=== PATIENT | male | born 1960 | race Caucasian/White ===

== ENCOUNTER 2016-11-29 21:02 | Emergency (ER) | payer OTHER ==
[~2016-11-29] VITALS: Ht 170.2 cm; Wt 69.9 kg
[~2016-11-29 21:02] MED LIST: ACET325T33 PO; DOCU-144 PO; ELVI1TAB PO; FAMO20TA18 PO; Furosemide IV; HYDR-3498 PO; IPRA3AMP HHN; LISI10TA2 PO; MOR2I IV; ONDA4VIA2 IV; ZOLP5TAB PO
[2016-11-29 21:11] VITALS: Ht 170.2 cm; Wt 69.9 kg
[2016-11-29] MEDS ORDERED: ONDANSETRON 4 MG INJ IV STA (22:41)
[2016-11-29] MEDS ORDERED: morphine 4 MG/ML VIAL IV STA (22:41)
[2016-11-29] MEDS ORDERED: SOD CHLORIDE 0.9% 500 ML IV STA (22:41)
[2016-11-29 23:15] LABS: ADD SCAN DIFF NO
[2016-11-29 23:18] LABS: BASOPHILS % 0.6 % (0.0-2.0); EOSINOPHILS # 0.3 10^3/ul (0.0-0.5); EOSINOPHILS % 4.3 % (0.0-7.0); HEMATOCRIT 29.8 % (42.0-52.0); HEMOGLOBIN 10.3 g/dl (14.0-18.0); LYMPHOCYTES % 16.4 % (15.0-51.0); MEAN CORPUSCULAR HEMOGLOBIN 32.2 pg (29.0-33.0); MEAN CORPUSCULAR HGB CONC 34.6 g/dl (32.0-37.0); MEAN CORPUSCULAR VOLUME 93.1 fl (82.0-101.0); MEAN PLATELET VOLUME 8.9 fl (7.4-10.4); MONOCYTE # 0.8 10^3/ul (0.3-0.9); MONOCYTES % 12.7 % (0.0-11.0); NEUTROPHIL # 4.1 10^3/ul (1.6-7.5); NEUTROPHILS % 65.8 % (39.0-77.0); PLATELET COUNT 140 10^3/UL (140-415); RED CELL DISTRIBUTION WIDTH 13.2 % (11.5-14.5); WHITE BLOOD COUNT 6.2 10^3/ul (4.8-10.8)
[2016-11-29 23:27] LABS: ALBUMIN 2.6 g/dl (3.3-4.9)
[2016-11-29 23:28] LABS: POTASSIUM 3.9 mmol/L (3.5-5.1)
[2016-11-29 23:30] LABS: ALBUMIN/GLOBULIN RATIO 0.65; BILIRUBIN,INDIRECT 0.4 mg/dl (0-1.1); BILIRUBIN,TOTAL 0.4 mg/dl (0.2-1.3); CREATININE 0.6 mg/dl (0.61-1.24); TOTAL PROTEIN 6.6 g/dl (6.1-8.1)
[2016-11-29 23:31] LABS: CALCIUM 8.3 mg/dl (8.4-10.2)
--- NOTE | 2016-11-29 23:52 | RADRPT ---
PROCEDURE: CT Abdomen and pelvis without contrast. CLINICAL INDICATION: Abdominal pain. TECHNIQUE: CT scan of the abdomen and pelvis was performed on a multi-detector high-resolution CT scanner. Contiguous axial images were obtained from the lung bases to the ischial tuberosities wit hout intravenous contrast. Coronal and sagittal reformatted images were also obtained. Images were reviewed on the PACS workstation. One or more of the following dose reduction techniques were used: - Automated exposure control. - Adjustment of the mA and/or kV according to patient size. - Use of iterative reconstruction technique. Exam CTD/vol = 9.48 mGy. Total exam DLP = 518.14 mGy-cm. COMPARISON: 10/27/2015. FINDINGS: Evaluation of the lung bases demonstrates a moderate right-sided pleural effusion with underlying at electasis. Abdomen: The liver is normal in size with a diffuse nodular contour consistent with cirrhosis. The re is no focal mass or dilatation of the biliary tree. A TIPS is present. The gallbladder is not d istended. A gallstone is identified. The spleen, pancreas and bilateral adrenal glands are within normal limits. Bilateral kidneys are normal in size with no contour deforming mass identified. The re is a punctate 1 mm calculus within the lower pole of the right kidney. There is a right-sided ur eteral stent in place. There is mild right-sided hydronephrosis with mild perinephric and periurete ral stranding. There is no retroperitoneal adenopathy. The abdominal aorta is of normal caliber. There is no abnormal bowel wall thickening or distension. There is no bowel obstruction or free air . A normal appendix is identified. There diverticulosis of the descending and sigmoid colon withou t evidence of diverticulitis. There is no ascites. Pelvis: The bladder is unremarkable. There is a 6 x 3 mm calculus within the right distal ureter. The prostate and seminal vesicles are within normal limits. There is no significant pelvic adenopat hy or free fluid. Evaluation of the osseous structures demonstrates no suspicious lytic or blastic lesion. There are d egenerative changes and moderate dextroscoliosis of the lumbar spine. IMPRESSION: Right distal ureteral 6 x 3 mm calculus with mild right-sided hydronephrosis. There is a right-side d ureteral stent in place. Moderate right-sided pleural effusion with underlying atelectasis. Cirrhotic liver with TIPS present. Cholelithiasis. Right renal calculus. Descending and sigmoid diverticulosis without evidence of diverticulitis. Degenerative changes and moderate dextroscoliosis of the lumbar spine. .Larry Corrales MD, MD Date Time Electronically viewed and signed by .Larry Corrales MD, on 11/29/2016 23:52 .T/
[2016-11-29 23:58] LABS: ADD UMIC YES; URINE BILIRUBIN (Dip) NEGATIVE (NEGATIVE); URINE BLOOD (Dip) 3+ (NEGATIVE); URINE GLUCOSE (Dip) NEGATIVE (NEGATIVE); URINE KETONES (Dip) NEGATIVE (NEGATIVE); URINE LEUKOCYTE ESTERASE (Dip) 1+ (NEGATIVE); URINE NITRITE (Dip) NEGATIVE (NEGATIVE); URINE TOTAL PROTEIN (Dip) 4+ (NEGATIVE); URINE UROBILINOGEN (Dip) 0.2 E.U./dL (0.1-1.0)
[2016-11-30 00:03] LABS: URINE COLOR RED (YELLOW)
[2016-11-30 00:04] LABS: BACTERIA,URINE FEW; SQUAMOUS EPITHELIAL CELL,UR OCCASIONAL; URINE RBCS >200 /HPF (0)
[2016-11-30 00:05] LABS: MUCUS,URINE MANY
[2016-11-30] MEDS ORDERED: TAMS-14 PO (01:41)
[2016-11-30] MEDS ORDERED: DOCU-144 PO (01:41)
[2016-11-30] MEDS ORDERED: IBUP-1542 PO (01:41)
[2016-11-30] MEDS ORDERED: HYDR-906 PO (01:41)
--- NOTE | 2016-11-30 02:08 | ERD ---
ER Documentation Chief Complaint Date/Time DATE: 11/30/16 TIME: 02:01 Chief Complaint R flank pain x 3 month after having kidney stones removed. HPI Patient is a 56-year-old male with a past medical history of hepatitis C, HIV, known kidney stones who presents to the emergency department with right-sided flank pain. Patient states his pain started approximately 3 months ago. Patient describes pain to be intermittent in nature. Patient states that " there is a broken piece of catheter stuck in my kidney" and thus he is here to have it removed. Patient states he was referred here by his caustic purification operator at [facility]. Patient does not recall the name of his caustic purification operator. Patient states that he started having hematuria 2 weeks ago. Patient also reports frequency. Patient denies any fevers, chills, nausea, vomiting, upper abdominal pain, chest pain, shortness of breath, diaphoresis, loss of consciousness. Patient denies any changes in his bowel movements. ROS All systems reviewed and are negative except as per history of present illness. Medications Home Meds Active Scripts Ciprofloxacin Hcl* (Ciprofloxacin Hcl*) 500 Mg Tablet, 500 MG PO BID for 7 Days , TAB Prov:GEORGE TURNER PA-C 11/30/16 Docusate Sodium* (Colace*) 100 Mg Capsule, 100 MG PO DAILY, #30 CAP Prov:GEORGE TURNER PA-C 11/30/16 Tamsulosin Hcl* (Flomax*) 0.4 Mg Cap.er.24h, 0.4 MG PO BID, #30 CAP Prov:GEORGE TURNER PA-C 11/30/16 Ibuprofen* (Motrin*) 600 Mg Tab, 600 MG PO Q6, #30 TAB Prov:GEORGE TURNER PA-C 11/30/16 Hydrocodone/Acetaminophen ([place] 5-325 Tablet) 1 Each Tablet, 1 TAB PO Q6H Y for PAIN, #10 TAB Prov:GEORGE TURNER PA-C 11/30/16 Zolpidem Tartrate (Ambien Gopi) 5 Mg Tablet, 5 MG PO QHS Y for SLEEP for 1 Day, TAB Prov:CAMI WELLER 08/18/16 Ondansetron Hcl* (Ondansetron Hcl* Inj) 4 Mg/2 Ml Vial, 4 MG IV Q6H Y for NAUSEA AND/OR VOMITING for 1 Day, VIAL Prov:CAMI WELLERAnthony 08/18/16 Morphine Sulfate (Morphine Sulfate) 2 Mg/Ml Soln, 2 MG IV Q4H Y for SEVERE PAIN LEVEL 7-10 for 1 Day Prov:CAMI WELLERAnthony 08/18/16 Ipratropium-Albuterol (Ipratropium-Albuterol) 0.5-3 Mg/3 Ml Ampul.neb, 3 ML HHN Q4H RESP THERAPY for 1 Day Prov:CAMI WELLERAnthony 08/18/16 Hydrocodone Bit-Acetaminophen (Hydrocodone Bit-APAP) 5-325MG Tablet, 1 TAB PO Q6H Y for MODERATE PAIN LEVEL 4-6 for 1 Day, TAB Prov:CAMI WELLER Anthony 08/18/16 [Furosemide] 10 MG/ML SOLN No Conflict Check, 40 MG IV DAILY for 1 Day Prov:CAMI WELLER Anthony 08/18/16 Famotidine* (Famotidine*) 20 Mg Tablet, 20 MG PO BID for 1 Day, TAB Prov:CAMI WELLER Anthony 08/18/16 Docusate Sodium* (Colace*) 100 Mg Capsule, 100 MG PO Q12H Y for CONSTIPATION for 1 Day, CAP Prov:CAMI WELLER Anthony 08/18/16 Acetaminophen* (Tylenol*) 325 Mg Tablet, 650 MG PO Q6H Y for PAIN LEVEL 1-3 OR FEVER for 1 Day, TAB Prov:CAMI WELLER Anthony 08/18/16 Reported Medications Elvitegr/Cobicist/Emtric/Tenof (STRIBILD TABLET) 1 Each Tablet, 1 EACH PO DAILY , TAB 08/02/16 Lisinopril* (Lisinopril*) 10 Mg Tablet, 10 MG PO DAILY, #30 TAB 08/02/16 Allergies Allergies: Coded Allergies: Penicillins (Verified Allergy, Mild, HIVES, 08/02/16) PMhx/Soc History of Surgery: Yes (hernia repair 2016) Anesthesia Reaction: No Hx Neurological Disorder: No Hx Respiratory Disorders: Yes (respiratory failure) Hx Cardiac Disorders: Yes (htn) Hx Psychiatric Problems: No Hx Miscellaneous Medical Probl: Yes (hiv, hep c) Hx Alcohol Use: Yes Hx Substance Use: No Hx Tobacco Use: Yes Smoking Status: Former smoker FmHx Family History: No diabetes Physical Exam Vitals Vital Signs Date Time Temp Pulse Resp B/P Pulse Ox O2 Delivery O2 Flow Rate FiO2 11/30/16 02:09 76 16 131/72 98 Room Air 11/29/16 21:11 98.6 95 20 131/61 100 Physical Exam GENERAL: Well-developed, well-nourished male. Appears in no acute distress. HEAD: Normocephalic, atraumatic. EYES: Pupils are equally reactive bilaterally. EOMs grossly intact. No conjunctival erythema. No conjunctival icterus ENT: Moist mucous membranes. No uvula deviation. No kissing tonsils. NECK: Supple. No meningismus. Normal range of motion of the neck. LUNG: Clear to auscultation bilaterally. No rhonchi, wheezing, rales or coarse breath sounds. HEART: Regular rate and rhythm. No murmurs, rubs or gallops. ABDOMEN: Soft, nontender, and nondistended. Positive bowel sounds in all four quadrants. No rebound tenderness, no guarding. (-) McBurney's point tenderness. R CVA tenderness. No ascites BACK: No midline tenderness. EXTREMITIES: Equal pulses bilaterally. No peripheral clubbing, cyanosis or edema. No unilateral leg swelling. NEUROLOGIC: Alert and oriented. Moving all four extremities without any difficulty. Normal speech. Steady gait. SKIN: Normal color. Warm and dry. No rashes or lesions. Result Diagram: 11/29/16224911/29/162249 Results 24 hrs Laboratory Tests Test 11/29/16 22:50 11/29/16 23:20 Alanine Aminotransferase (ALT/SGPT) 29IU/L Albumin 2.6g/dl Albumin/Globulin Ratio 0.65 Alkaline Phosphatase 169IU/L Anion Gap 15 Aspartate Amino Transf (AST/SGOT) 52IU/L Basophils # 0.010^3/ul Basophils % 0.6% Blood Urea Nitrogen 15mg/dl Calcium Level 8.3mg/dl Carbon Dioxide Level 22mmol/L Chloride Level 106mmol/L Creatinine 0.60mg/dl Direct Bilirubin 0.00mg/dl Eosinophils # 0.310^3/ul Eosinophils % 4.3% Globulin 4.00g/dl Glucose Level 109mg/dl Hematocrit 29.8% Hemoglobin 10.3g/dl Indirect Bilirubin 0.4mg/dl Lipase 283U/L Lymphocytes # 1.010^3/ul Lymphocytes % 16.4% Mean Corpuscular Hemoglobin 32.2pg Mean Corpuscular Hemoglobin Concent 34.6g/dl Mean Corpuscular Volume 93.1fl Mean Platelet Volume 8.9fl Monocytes # 0.810^3/ul Monocytes % 12.7% Neutrophils # 4.110^3/ul Neutrophils % 65.8% Nucleated Red Blood Cells # 0.010^3/ul Nucleated Red Blood Cells % 0.0/100WBC Platelet Count 65749^3/UL Potassium Level 3.9mmol/L Red Blood Count 3.2010^6/ul Red Cell Distribution Width 13.2% Sodium Level 139mmol/L Total Bilirubin 0.4mg/dl Total Protein 6.6g/dl White Blood Count 6.210^3/ul Urine Bacteria FEW Urine Bilirubin NEGATIVE Urine Clarity CLOUDY Urine Color RED Urine Glucose NEGATIVE% Urine Hemoglobin 3+ Urine Ketones NEGATIVE Urine Leukocyte Esterase 1+ Urine Microscopic RBC >200/HPF Urine Microscopic WBC 2-5/HPF Urine Mucus MANY Urine Nitrite NEGATIVE Urine Specific [place] >=1.030 Urine Squamous Epithelial Cells OCCASIONAL Urine Total Protein 4+ Urine Urobilinogen 0.2 E.U./dL Urine pH 6.0 Current Medications Medications (Trade) Dose Ordered Sig/Lemuel Route PRN Reason Start Time Stop Time Status Last Admin Dose Admin Sodium Chloride (NS) 500 ml @ 500 mls/hr Q1H STAT IV 11/29/16 22:41 11/29/16 23:40 DC 11/29/16 22:59 Morphine Sulfate (morphine) 4 mg ONCE STAT IV 11/29/16 22:41 11/29/16 22:42 DC 11/29/16 22:59 Ondansetron HCl (Zofran Inj) 4 mg ONCE STAT IV 11/29/16 22:41 11/29/16 22:42 DC 11/29/16 22:59 Procedures/MDM ED COURSE: The patient was stable throughout ED course. I kept the patient and/or family informed of laboratory and diagnostic imaging results throughout the ED course. DIAGNOSTIC IMAGING: Read by radiologist. DIAGNOSTIC IMAGING REPORT Patient: ABE BYRNE : 1960 Age: 56 Sex: M MR #: [id number] DOS: 11/29/16 2241 Ordering MD: GEORGE TURNER PA-C Location: [facility] Room/Bed: PROCEDURE: CT Abdomen and pelvis without contrast. CLINICAL INDICATION: Abdominal pain. TECHNIQUE: CT scan of the abdomen and pelvis was performed on a multi- detector high-resolution CT scanner. Contiguous axial images were obtained from the lung bases to the ischial tuberosities without intravenous contrast. Coronal and sagittal reformatted images were also obtained. Images were reviewed on the PACS workstation. One or more of the following dose reduction techniques were used: - Automated exposure control. - Adjustment of the mA and/or kV according to patient size. - Use of iterative reconstruction technique. Exam CTD/vol = 9.48 mGy. Total exam DLP = 518.14 mGy-cm. COMPARISON: 10/27/2015. FINDINGS: Evaluation of the lung bases demonstrates a moderate right-sided pleural effusion with underlying atelectasis. Abdomen: The liver is normal in size with a diffuse nodular contour consistent with cirrhosis. There is no focal mass or dilatation of the biliary tree. A TIPS is present. The gallbladder is not distended. A gallstone is identified. The spleen, pancreas and bilateral adrenal glands are within normal limits. Bilateral kidneys are normal in size with no contour deforming mass identified. There is a punctate 1 mm calculus within the lower pole of the right kidney. There is a right-sided ureteral stent in place. There is mild right-sided hydronephrosis with mild perinephric and periureteral stranding. There is no retroperitoneal adenopathy. The abdominal aorta is of normal caliber. There is no abnormal bowel wall thickening or distension. There is no bowel obstruction or free air. A normal appendix is identified. There diverticulosis of the descending and sigmoid colon without evidence of diverticulitis. There is no ascites. Pelvis: The bladder is unremarkable. There is a 6 x 3 mm calculus within the right distal ureter. The prostate and seminal vesicles are within normal limits. There is no significant pelvic adenopathy or free fluid. Evaluation of the osseous structures demonstrates no suspicious lytic or blastic lesion. There are degenerative changes and moderate dextroscoliosis of the lumbar spine. IMPRESSION: Right distal ureteral 6 x 3 mm calculus with mild right-sided hydronephrosis. There is a right-sided ureteral stent in place. Moderate right-sided pleural effusion with underlying atelectasis. Cirrhotic liver with TIPS present. Cholelithiasis. Right renal calculus. Descending and sigmoid diverticulosis without evidence of diverticulitis. Degenerative changes and moderate dextroscoliosis of the lumbar spine. .Larry Corrales MD, MD Date Time Electronically viewed and signed by .Larry Corrales MD, MD on 11/29/2016 23:52 .T/ MEDICATIONS GIVEN: IV fluids, Zofran, morphine Patient tolerated medication well with no adverse reactions. Patient reported improvement in pain. Patient had safe transport home. MEDICAL DECISION MAKING: This is a 56-year-old male who presents to the emergency department with right- sided flank pain 3 months. Patient does have history of right-sided kidney stones.. Vital signs were reviewed. Patient is afebrile. Patient was not hypoxic. CBC showed no evidence of systemic infection. Patient's hemoglobin level is noted to be 10.3, hematocrit of 29.8. CMP showed no evidence of electrolyte abnormalities, severe acidosis, alkalosis, renal failure, or liver disease. Lipase showed no evidence of acute pancreatitis. Patient's urine showed 2-5 WBCs, positive leukocyte esterase 1+, + squamous epithelial cells. Given the patient's history of kidney stones, I will empirically treat the patient for UTI at this time. CT imaging of the abdomen and pelvis with IV contrast showed a Right distal ureteral 6 x 3 mm calculus with mild right-sided hydronephrosis. There is a right-sided ureteral stent in place. Moderate right-sided pleural effusion with underlying atelectasis. Cirrhotic liver with TIPS present. Cholelithiasis. Right renal calculus. Descending and sigmoid diverticulosis without evidence of diverticulitis. Degenerative changes and moderate dextroscoliosis of the lumbar spine. At this time, patient's presentation is most consistent with nephrolithiasis, pleural effusion, cirrhosis, cholelithiasis, diverticulosis. I have a much lower clinical concern for acute coronary syndrome, AAA, mesenteric ischemia, DKA, bowel perforation, bowel perforation, cholecystitis, choledocholithiasis, ascending cholangitis, hepatic abscess, pancreatitis, splenic rupture, diverticulitis, appendicitis, constipation. PRESCRIPTIONS: [place], ibuprofen, Flomax, Colace, Keflex DISCHARGE: At this time, patient is stable for discharge and outpatient management. I discussed this patient's case with my supervising physician Dr. Zee, who reviewed the patient's CT findings and laboratory studies. At this time, my supervising physician Dr. Zee, agrees that the patient is stable for discharge I have instructed the patient to follow-up with his/her primary care physician in 1-2 days. Patient was advised that he will need to follow-up with his caustic purification operator at [facility] for further management of his symptoms. Patient should also follow-up with his PCP for management of his chronic symptoms including his cirrhosis and pleural effusion. Patient given a copy of all imaging and blood work obtained today. I have instructed the patient to promptly return to the ER at any time for any new or worsening symptoms including increased pain, nausea, vomiting, diarrhea, fever, weakness or LOC. The patient and/or family expressed understanding of and agreement with this plan. All questions were answered. Home care instructions were provided. Departure Diagnosis: Primary Impression: Nephrolithiasis Additional Impressions: Cirrhosis Hepatic cirrhosis type: unspecified hepatic cirrhosis Ascites presence: without ascites Qualified Code: K74.60 - Cirrhosis of liver without ascites, unspecified hepatic cirrhosis type Pleural effusion Diverticulosis Diverticulosis site: unspecified location Diverticulosis bleeding: diverticulosis without bleeding Qualified Code: K57.90 - Diverticulosis of intestine without bleeding, unspecified intestinal tract location Condition: Stable Patient Instructions: Preventing Kidney Stones, Cirrhosis Referrals: [facility] YOU HAVE RECEIVED A MEDICAL SCREENING EXAM AND THE RESULTS INDICATE THAT YOU DO NOT HAVE A CONDITION THAT REQUIRES URGENT TREATMENT IN THE EMERGENCY DEPARTMENT. FURTHER EVALUATION AND TREATMENT OF YOUR CONDITION CAN WAIT UNTIL YOU ARE SEEN IN YOUR DOCTORS OFFICE WITHIN THE NEXT 1-2 DAYS. IT IS YOUR RESPONSIBILITY TO MAKE AN APPOINTMENT FOR FOLOW-UP CARE. IF YOU HAVE A PRIMARY DOCTOR --you should call your primary doctor and schedule an appointment IF YOU DO NOT HAVE A PRIMARY DOCTOR YOU CAN CALL OUR PHYSICIAN REFERRAL HOTLINE AT IF YOU CAN NOT AFFORD TO SEE A PHYSICIAN YOU CAN CHOSE FROM THE FOLLOWING [facility] [address] [facility] [facility] ([place], [place])[phone] [facility]. [facility] [address] [facility] [address] [facility] [facility] [address] [facility]. [facility]. [address] [facility]. [facility] YOU HAVE RECEIVED A MEDICAL SCREENING EXAM AND THE RESULTS INDICATE THAT YOU DO NOT HAVE A CONDITION THAT REQUIRES URGENT TREATMENT IN THE EMERGENCY DEPARTMENT. FURTHER EVALUATION AND TREATMENT OF YOUR CONDITION CAN WAIT UNTIL YOU ARE SEEN IN YOUR DOCTORS OFFICE WITHIN THE NEXT 1-2 DAYS. IT IS YOUR RESPONSIBILITY TO MAKE AN APPOINTMENT FOR FOLOW-UP CARE. IF YOU HAVE A PRIMARY DOCTOR --you should call your primary doctor and schedule and appointment IF YOU DO NOT HAVE A PRIMARY DOCTOR YOU CAN CALL OUR PHYSICIAN REFERRAL HOTLINE AT . IF YOU CAN NOT AFFORD TO SEE A PHYSICIAN YOU CAN CHOSE FROM THE FOLLOWING [facility] INSTITUTIONS: [facility] [address] [place] [address] [facility] [address] [place] [address] [facility] [address] [place] [address] Additional Instructions: Call your primary care doctor TOMORROW for an appointment during the next 1-2 days.See the doctor sooner or return here if your condition worsens before your appointment time. Patient was advised to follow-up with his urologist at [facility]. GEORGE TURNER PA-C Nov 30, 2016 02:08
[2016-11-30 02:09] VITALS: BP 131/72; PULSE 76; RESP 16
[2016-11-30] MEDS ORDERED: CIPR500T4 PO (02:09)
== END 2016-11-30 02:13 | disposition home or self-care (01) ==
LOC: FTE 21:02
DX: N20.0 Calculus of kidney (principal); K74.60 Unspecified cirrhosis of liver; J90 Pleural effusion, not elsewhere classified; K57.90 Diverticulosis of intestine, part unspecified, without perforation or abscess without bleeding; I10 Essential (primary) hypertension; Z87.891 Personal history of nicotine dependence
CPT/HCPCS: 36415; 74176; 80053; 81001; 83690; 85025; 96374; 96375; J2270; J2405; J7040; Z7502; 81003

== ENCOUNTER 2019-01-15 20:55 | Emergency (ER) | payer SELFPAY ==
[~2019-01-15] VITALS: Ht 157.5 cm; Wt 86.6 kg
[~2019-01-15 20:55] MED LIST changes: +CIPR500T4 PO; -ELVI1TAB PO; +ELVI1TAB2 PO; -HYDR-3498 PO; +HYDR-3601 PO; +HYDR-4011 PO; +IBUP-1542 PO; -IPRA3AMP HHN; +IPRA3AMP29 HHN; -ONDA4VIA2 IV; +ONDA4VIA6 IV; +TAMS-14 PO
[2019-01-15 21:27] VITALS: BP 138/81; PULSE 102; RESP 20; Ht 157.5 cm; Wt 86.6 kg
== END 2019-01-16 02:53 | disposition left against medical advice (07) ==
LOC: E/R 20:55
DX: Z53.21 Procedure and treatment not carried out due to patient leaving prior to being seen by health care provider (principal)